=== PATIENT | male | born 1950 | race Caucasian/White ===

== ENCOUNTER 2021-06-20 09:34 | Inpatient (IN) ==
--- NOTE | 2021-06-20 09:54 | Emergency Department Note ---
Impression & Plan Hypotension, Syncope, Diarrhea, Hypokalemia, Acute dehydration ED Provider Note NAME: AYSHA PEREZ AGE: 71 SEX: M : 1950 ARRIVES VIA: Ambulance INFORMANT: Patient, ED PROVIDER(S): Prem Mina MD Chief Complaint: Syncope HPI: Patient presents with concern for syncope x2. The patient states that he syncopized around 2 AM this morning and subsequently around 7 AM. The patient's BSG was normal. The patient has complained of voluminous bouts of diarrhea that is clear in nature. The patient was told to stop his blood pressure medications which he was on a diuretic as well as a blood pressure medication that lowers rate. Patient was not advised to do this by his supervisor fur floor worker Dr. Reeder as he was having this diarrhea. Patient denies any recent travel or known sick contacts. Patient is vaccinated including with a booster. Patient did have fever to 101 2 days ago and did have a recurrence after taking some Tylenol. The patient denies any upper respiratory symptoms or abdominal pain. The patient does receive peritoneal dialysis and does make urine. Patient denies any abdominal pain nausea or vomiting. The patient denies any recent antibiotic use. Patient was noted to be hypertensive prior to arrival with a blood pressure 68/42 and pulse of 70. Patient does relate that he had been on a diuretic before due to a prior history of "fluid around the heart." Patient has followed with Dr. Clinton with [facility] cardiology in the past. The patient states that during his bouts of syncope he had counted warning signs to where he felt very lightheaded and dizzy try to sit down but then subsequently passed out. The patient does have some shortness of breath even at rest. Patient denies any obvious weight gain or lower extremity swelling. ROS: See HPI for pertinent positives and negatives. A total of 10 systems were reviewed and otherwise negative. Past medical history: See below Surgical history: See below Social history: See below Physical Exam: GENERAL: NAD, wearing glasses, wearing a mask, non-toxic. EYE EXAM: Normal conjunctiva. PERRL, no anisocoria and EOM's grossly intact w/o pain. OROPHARYNX: Moist mucus membranes. Grossly normal dentition. NECK: Supple, no nuchal rigidity, no adenopathy, non-tender. No signs of meningismus. LUNGS: Clear to auscultation. Normal chest wall mechanics. HEART: NSR, no MRG. ABDOMEN: Abdomen soft, non-tender, peritoneal catheter left mid abdomen with no surrounding erythema or drainage, normo-active bowel sounds, no masses, no rebound or guarding. BACK: No CVA TTP. SKIN: No rashes and no bruising. UPPER EXTREMITIES: Upper extremities are grossly normal. LOWER EXTREMITIES: Grossly normal, no edema. NEURO EXAM: A&O x3, cranial nerves II-XII grossly intact, normal speech, moves all 4 extremities on command w/o issue. Differential diagnoses: Infection, dehydration, metabolic abnormality, hypo/hyperglycemia, electrolyte disturbance, anemia, hypoxia, cardiac sources, intracerebral event, toxicologic, neurologic, as well as other pathologies. Course: Patient was seen and evaluated the bedside. Full history physical exam was performed. EKG interpreted by me Sinus, rate of 78, wide QRS prolonged QTC, left axis deviation, right bundle branch block pattern. Patient's EKG is changed from comparison EKG January 20, 2008. Patient's left axis deviation appears to be old right bundle branch block wide QRS and prolonged QT appear to be new. Imaging Studies: See Below Cardiac monitoring: An order was placed for continuous cardiac monitoring. The monitor shows a rate of 79 with sinus rhythm. MDM: Patient was seen due to concern for diarrhea illness hypotension and recent fever. Blood work obtained along with blood culture and the patient was empirically treated with antibiotics as a precaution given the patient's peritoneal dialysis and hypotension. Patient's blood work showed white count of 13 with mild anemia with a hemoglobin of 11.9. Platelet count is unremarkable. The patient's kidney function is elevated but the patient does have history of peritoneal dialysis. Potassium is not elevated. The patient's stool studies were completed which eventually showed the patient does have Salmonella. This result was conveyed to me after the patient had already been admitted to the inpatient service. Charge nurse was going to inform the inpatient team. Covid negative. I did inform the patient of all his findings prior to his admission. I did speak the on-call hospitalist Zina Connelly PA-C and the patient was admitted by Dr. Rojas. Past Med/Surg History Medical History (Updated 06/21/21 @ 07:11 by Prem Mina MD) CAD (coronary artery disease) CKD (chronic kidney disease) stage 5, GFR less than 15 ml/min Gout H/O: HTN (hypertension) HLD (hyperlipidemia) HTN (hypertension) Hyperparathyroidism Iron deficiency anemia Peritoneal dialysis status Presence of peritoneal dialysis catheter Surgical History (Updated 06/20/21 @ 13:18 by Zina Orozco PA-C) History of coronary angiogram History of parathyroidectomy History of vasectomy Family History (Updated 06/20/21 @ 13:19 by Zina Orozco PA-C) Father Diabetes Stroke Mother Coronary heart disease Social History Smoking Status: Never smoker Hx Alcohol Use: No Hx Substance Use: No Preferred Language: Estonian Communication Ability: Effective Financial Administrative Assistant Required: No Beliefs That Will Affect Care: None marital status: Current Living Situation: Alone Feels Safe at Home: Yes Safety Concerns: Feels Safe At This Time Assistive Devices: None Allergies Allergies Allergy/AdvReac Type Severity Reaction Status Date / Time lisinopril AdvReac Mild COUGH Verified 06/20/21 11:57 Home Meds Home Medications Medication Instructions Recorded Confirmed acetaminophen 500 mg tablet 1,000 mg PO Q6H PRN 06/20/21 06/20/21 (Tylenol Extra Strength) allopurinol 300 mg tablet 300 mg PO QAM 06/20/21 06/20/21 amlodipine 5 mg tablet 5 mg PO BID 06/20/21 06/20/21 aspirin 81 mg tablet,delayed 81 mg PO QAM 06/20/21 06/20/21 release atenolol 25 mg tablet 25 mg PO QAM 06/20/21 06/20/21 atorvastatin 40 mg tablet 40 mg PO QAM 06/20/21 06/20/21 calcium carbonate 200 mg calcium 200 mg PO HS 06/20/21 06/20/21 (500 mg) chewable tablet (Tums) cholecalciferol (vitamin D3) 25 25 mcg PO QAM 06/20/21 06/20/21 mcg (1,000 unit) tablet (Vitamin D3) docusate sodium 100 mg capsule 100 mg PO QAM 06/20/21 06/20/21 torsemide 100 mg tablet 100 mg PO QAM 06/20/21 06/20/21 Results & Data (ED) Vital Signs Vital Signs - 24 hr 06/20/21 09:24 06/20/21 09:39 06/20/21 10:15 Temperature 36.6 C Temperature Source Oral Pulse Rate 79 77 Pulse Rate [Apical] 78 Pulse Rhythm [Apical] Pulse Strength [Apical] Respiratory Rate 12 16 16 Respiratory Effort / Characteristics Respiratory Depth Respiratory Pattern Blood Pressure 92/48 L Blood Pressure [Left Arm] 96/52 L Blood Pressure Mean 62 Blood Pressure Mean [Left Arm] 66 Blood Pressure Position [Left Arm] Pulse Oximetry 99 100 100 Oxygen Delivery Method Room Air Room Air Room Air Sepsis Recent Fever Within 48 Hours No Sepsis New/Unexplained Change in Mental Status No Sepsis Action Taken by Nursing No Action Required 06/20/21 10:41 06/20/21 11:27 06/20/21 11:44 Temperature Temperature Source Pulse Rate Pulse Rate [Apical] 78 81 80 Pulse Rhythm [Apical] Regular Regular Pulse Strength [Apical] Normal Normal Respiratory Rate 16 18 18 Respiratory Effort / Characteristics Non-Labored Non-Labored Respiratory Depth Normal Normal Respiratory Pattern Regular Regular Blood Pressure Blood Pressure [Left Arm] 86/53 L 98/51 L 84/43 L Blood Pressure Mean Blood Pressure Mean [Left Arm] 64 66 56 Blood Pressure Position [Left Arm] Lying Lying Pulse Oximetry 100 98 98 Oxygen Delivery Method Room Air Room Air Sepsis Recent Fever Within 48 Hours Sepsis New/Unexplained Change in Mental Status Sepsis Action Taken by Nursing 06/20/21 12:10 Temperature Temperature Source Pulse Rate Pulse Rate [Apical] 84 Pulse Rhythm [Apical] Regular Pulse Strength [Apical] Normal Respiratory Rate 18 Respiratory Effort / Characteristics Non-Labored Respiratory Depth Normal Respiratory Pattern Regular Blood Pressure Blood Pressure [Left Arm] 95/48 L Blood Pressure Mean Blood Pressure Mean [Left Arm] 63 Blood Pressure Position [Left Arm] Lying Pulse Oximetry 99 Oxygen Delivery Method Room Air Sepsis Recent Fever Within 48 Hours Sepsis New/Unexplained Change in Mental Status Sepsis Action Taken by [facility] Medications Current Medication List: was personally reviewed by me Laboratory Data Attestation: I reviewed the patient's lab results. Result diagrams: 06/20/21 09:28 06/20/21 09:28 Lab Results 06/20/21 06/20/21 06/20/21 Range/Units 09:28 09:28 09:28 WBC 13.75 H (4.8-10.8) K/uL RBC 3.62 L (4.7-6.1) M/uL Hgb 11.9 L (14.0-18.0) g/dL Hct 35.7 L (42-52) % MCV 98.6 (80-100) fL MCH 32.9 (25-34) pg MCHC 33.3 (32-36) g/dL RDW Std Deviation 55.7 H (36.4-46.3) fL RDW Coeff of Jaiden 15.3 H (11.5-14.5) % Plt Count 315 (130-400) K/uL MPV 9.4 (7.4-10.4) fL Immature Gran % (Auto) 0.3 % Neut % (Auto) 82.7 % Lymph % (Auto) 8.7 % Ralls % (Auto) 8.2 % Eos % (Auto) 0.0 % Baso % (Auto) 0.1 % Neut # (Auto) 11.36 H (1.4-6.5) K/uL Lymph # (Auto) 1.20 (1.2-3.4) K/uL Ralls # (Auto) 1.13 H (0.11-0.59) K/uL Eos # (Auto) 0.00 (0-0.5) K/uL Baso # (Auto) 0.02 (0-0.2) K/uL Immature Gran # (Auto) 0.04 H (0.00-0.02) K/uL Sodium 133 L (136-145) mmol/L Potassium 3.3 L (3.5-5.1) mmol/L Chloride 93 L (98-107) mmol/L Carbon Dioxide 19 L (21-32) mmol/L Anion Gap 21 H (3-11) BUN 68 H (6-23) mg/dl Creatinine 12.38 H* (0.6-1.4) mg/dl Est Cr Clr Drug Dosing 5.2 ml/min Est GFR ( Amer) 4.1 ml/min Est GFR (Non-Af Amer) 3.6 ml/min BUN/Creatinine Ratio 5.5 L (10-20) Glucose 111 H (70-99(Fasting)) mg/dl Calcium 8.9 (8.5-10.1) mg/dl Magnesium 1.8 (1.7-2.4) mg/dl Total Bilirubin 0.5 (0.2-1.0) mg/dl AST 12 L (13-39) U/L ALT 11 (7-52) U/L Alkaline Phosphatase 68 (34-104) U/L Total Protein 7.4 (6.0-8.3) gm/dl Albumin 3.9 (3.4-5.0) gm/dl Globulin 3.5 (2.5-4.0) gm/dl Albumin/Globulin Ratio 1.1 (0.9-2) TSH 3.461 (0.300-4.500) uIu/ml Nasal Screen MRSA (PCR) (Negative) SARS-CoV-2, RNA, NAAT (NEGATIVE) 06/20/21 06/20/21 Range/Units 10:31 10:31 WBC (4.8-10.8) K/uL RBC (4.7-6.1) M/uL Hgb (14.0-18.0) g/dL Hct (42-52) % MCV (80-100) fL MCH (25-34) pg MCHC (32-36) g/dL RDW Std Deviation (36.4-46.3) fL RDW Coeff of Jaiden (11.5-14.5) % Plt Count (130-400) K/uL MPV (7.4-10.4) fL Immature Gran % (Auto) % Neut % (Auto) % Lymph % (Auto) % Ralls % (Auto) % Eos % (Auto) % Baso % (Auto) % Neut # (Auto) (1.4-6.5) K/uL Lymph # (Auto) (1.2-3.4) K/uL Ralls # (Auto) (0.11-0.59) K/uL Eos # (Auto) (0-0.5) K/uL Baso # (Auto) (0-0.2) K/uL Immature Gran # (Auto) (0.00-0.02) K/uL Sodium (136-145) mmol/L Potassium (3.5-5.1) mmol/L Chloride (98-107) mmol/L Carbon Dioxide (21-32) mmol/L Anion Gap (3-11) BUN (6-23) mg/dl Creatinine (0.6-1.4) mg/dl Est Cr Clr Drug Dosing ml/min Est GFR ( Amer) ml/min Est GFR (Non-Af Amer) ml/min BUN/Creatinine Ratio (10-20) Glucose (70-99(Fasting)) mg/dl Calcium (8.5-10.1) mg/dl Magnesium (1.7-2.4) mg/dl Total Bilirubin (0.2-1.0) mg/dl AST (13-39) U/L ALT (7-52) U/L Alkaline Phosphatase (34-104) U/L Total Protein (6.0-8.3) gm/dl Albumin (3.4-5.0) gm/dl Globulin (2.5-4.0) gm/dl Albumin/Globulin Ratio (0.9-2) TSH (0.300-4.500) uIu/ml Nasal Screen MRSA (PCR) Negative (Negative) SARS-CoV-2, RNA, NAAT NEGATIVE (NEGATIVE) Administered Medications Calcium Carbonate (Calcium Carbonate 500 Mg Chewable Tab) 200 mg PO HS JAVIER Stop: 07/20/21 20:59 Last Admin: 06/20/21 20:17 Dose: 200 mg Documented by: [id number] Pantoprazole Sodium 40 mg/ (Syringe) 10 mls @ 5 mls/min IV DAILY@1100 [facility] Stop: 07/20/21 13:59 Last Admin: 06/20/21 14:31 Dose: 5 mls/min Documented by: [id number] Ceftriaxone Sodium 1,000 mg/ (Dextrose) 60 mls @ 120 mls/hr IV Q24H JAVIER Stop: 06/30/21 15:44 Last Infusion: 06/20/21 18:44 Dose: 0 mls/hr Documented by: [id number] Admin: 06/20/21 18:14 Dose: 120 mls/hr Documented by: [id number] Loperamide HCl (Loperamide Hcl 2 Mg Cap) 2 mg PO Q6H PRN PRN Reason: Diarrhea Stop: 07/20/21 20:24 Last Admin: 06/20/21 21:12 Dose: 2 mg Documented by: [id number] Discontinued Medications Sodium Chloride (Nss 1000ml) 1,000 mls @ 999 mls/hr IV .[id number] JAVIER Stop: 06/20/21 11:15 Last Infusion: 06/20/21 10:42 Dose: 0 mls/hr Documented by: [id number] Admin: 06/20/21 10:30 Dose: 999 mls/hr Documented by: [id number] Piperacillin Sod/Tazobactam Sod (Zosyn) 4.5 gm in 120 mls @ 240 mls/hr IV NOW ONE Stop: 06/20/21 10:44 Last Infusion: 06/20/21 11:30 Dose: 0 mls/hr Documented by: [id number] Admin: 06/20/21 10:36 Dose: 240 mls/hr Documented by: [id number] Sodium Chloride (Nss 1000ml) 1,000 mls @ 999 mls/hr IV .Q1H1M ONE Stop: 06/20/21 12:51 Last Infusion: 06/20/21 13:31 Dose: 0 mls/hr Documented by: [id number] Admin: 06/20/21 11:56 Dose: 999 mls/hr Documented by: [id number] Lactated Ringer's (Lr) 1,000 mls @ 80 mls/hr IV .[id number] JAVIER Stop: 06/21/21 01:58 Last Infusion: 06/21/21 02:49 Dose: 0 mls/hr Documented by: [id number] Admin: 06/20/21 13:47 Dose: 80 mls/hr Documented by: [id number] Potassium Chloride (Potassium Chloride Crtab 20 Meq Tabcr) 20 meq PO NOW STA Stop: 06/20/21 14:20 Last Admin: 06/20/21 16:00 Dose: 20 meq Documented by: [id number] Discharge Plan Visit Data Chief Complaint: Syncope Stated Complaint: HYPOTENSION, DIARRHEA ED Provider: Prem Mina Discharge Problem: Hypotension, Syncope, Diarrhea, Hypokalemia, Acute dehydration Patient Disposition: Admitted As Inpatient Discharge Instructions Interventions: ED Discharge Assessment Last Done: 06/20/21 12:32
[2021-06-20] MEDS ORDERED: PIPERACILL/TAZOBAC CONSULT ACTIVE PRN ×2 (10:15→13:29)
[2021-06-20] MEDS ORDERED: SODIUM CHLORIDE 0.9% 1000ML 1,000 ML IV SCH (10:15)
[2021-06-20] MEDS ORDERED: PIPERACILLIN/TAZOBACTAM 4.5 GM/120 ML BAG IV ONE (10:15)
[2021-06-20 10:25] LABS: Basophils # (auto) 0.02 K/uL (0-0.2); Basophils % (auto) 0.1 %; Hematocrit (blood only) 35.7 % (42-52); Hemoglobin 11.9 g/dL (14.0-18.0); Immature Granulocytes # (auto) 0.04 K/uL (0.00-0.02); Immature Granulocytes % (auto) 0.3 %; Lymphocytes % (auto) 8.7 %; Mean Corpuscular Hemoglobin 32.9 pg (25-34); Mean Corpuscular Hgb Conc 33.3 g/dL (32-36); Mean Corpuscular Volume 98.6 fL (80-100); Mean Platelet Volume 9.4 fL (7.4-10.4); Monocytes # (auto) 1.13 K/uL (0.11-0.59); Monocytes % (auto) 8.2 %; Neutrophils # (auto) 11.36 K/uL (1.4-6.5); Neutrophils % (auto) 82.7 %; Platelet Count 315 K/uL (130-400); RDW Coefficient of Variation 15.3 % (11.5-14.5); RDW Standard Deviation 55.7 fL (36.4-46.3); Red Blood Count 3.62 M/uL (4.7-6.1); White Blood Count 13.75 K/uL (4.8-10.8)
[2021-06-20 10:43] LABS: Albumin Globulin Ratio 1.1 (0.9-2); Albumin Level 3.9 gm/dl (3.4-5.0); BUN Creatinine Ratio 5.5 (10-20); Bilirubin,Total 0.5 mg/dl (0.2-1.0); Calcium 8.9 mg/dl (8.5-10.1); Creatinine Clr Calc Pharmacy 5.2 ml/min; Est GFR (African American) 4.1 ml/min; Est GFR (Non-African American) 3.6 ml/min; Globulin 3.5 gm/dl (2.5-4.0); Magnesium 1.8 mg/dl (1.7-2.4); Potassium 3.3 mmol/L (3.5-5.1); Total Protein 7.4 gm/dl (6.0-8.3)
--- NOTE | 2021-06-20 10:49 | XRay Report ---
XR chest 1V portable HISTORY: 71 years-old Male weakness acute weakness COMPARISON: 01/19/2008 TECHNIQUE: Portable AP view of the chest FINDINGS: Cardiac mediastinal and hilar silhouettes are within normal limits. Calcified plaque of the thoracic aorta. No pneumothorax, pleural effusion, airspace consolidation or overt pulmonary edema. The bones of the chest appear grossly intact. Spondylitic spurring of the spine. IMPRESSION: No acute process. ACT 112: Negative or not required by law. The above report was generated using voice recognition software. It may contain grammatical, syntax o r spelling errors. Electronically signed by: Cortez Guerrero M.D. 06/20/2021 10:48 AM
--- NOTE | 2021-06-20 11:12 | CT Scan Report ---
CT head/brain wo con CLINICAL HISTORY: Status post fall with trauma to the forehead. Pain 01/19/2008 COMPARISON STUDY: No previous studies for comparison. CT DOSE: 537.48 mGy.cm TECHNIQUE: Standard CT of the Brain was performed without IV contrast. A dose lowering technique was utilized adhering to the principles of ALARA. FINDINGS: Extraaxial space: There is no evidence for subdural hematoma. There are no extra-axial fluid collecti ons. Ventricles and cisterns: The ventricles are mildly dilated bilaterally. There is no evidence for midl ine shift or mass effect. Parenchyma: There is no subarachnoid or intraparenchymal hemorrhage. There is no evidence for an acut e infarct or cerebral edema. There is mild cerebral cortical atrophy and decreased attenuation in the periventricular white matter representing remote small vessel disease. There are no gross mass lesio ns. Osseous structures: There is no evidence for an acute fracture. The visualized paranasal sinuses are clear. The mastoid air cells are clear bilaterally. Soft tissues: There is no evidence for focal soft tissue swelling. IMPRESSION: 1. No acute intracerebral pathology. 2. Mild cerebral cortical atrophy and remote small vessel disease. ACT 112: Negative or not required by law. Electronically signed by: Jose Fields M.D. 06/20/2021 11:11 AM
[2021-06-20] MEDS ORDERED: SODIUM CHLORIDE 0.9% 1000ML 1,000 ML IV ONE (11:51)
--- NOTE | 2021-06-20 13:06 | History & Physical Report ---
Date of Service June 20, 2021 Assessment & Plan (1) Syncope: (2) Diarrhea: (3) Hypotension: (4) Hypokalemia: (5) Metabolic acidosis, increased anion gap: (6) CKD (chronic kidney disease) stage 5, GFR less than 15 ml/min: (7) HTN (hypertension): (8) HLD (hyperlipidemia): Plan: This is a 71-year-old male who has significant past medical history of CKD stage V on peritoneal dialysis, CAD, HTN, HLD, hyperparathyroidism, gout, history of iron deficiency anemia who presents to ED after sustaining a syncopal episode x1. Syncope Acute diarrheal illness Salmonella Gastroenteritis Hypotension likely secondary to orthostasis in setting of volume depletion Admit to PCU Orthostatic Monitor on telemetry Consult nephrology due to peritoneal dialysis -discussed with Dr. Mcdaniel who recommends 1 L of Lactate Ringers Given Salmonella and prolonged QTC will avoid quinolones Discussed with pharmacy will start IV rocephin 1g daily blood culture, stool culture and urine ordered PT/OT per nephrology pt will likely do PD this evening If Cdif negative add imodium Hypokalemia replace Metabolic acidosis, increased anion gap continue fluids Dark stool pt reports Dark/Black stool per nursing it was blue/green will obtain FOBT hgb. 11.9 - improved from OP recs, hgb 06/03 9.5 IV PPI daily for now HTN hold atenolol, amlodipine and torsemide HLD continue statin DVT ppx: SCD/TEDS for now, if FOBT negative and h/h stable initiate chemical prophylaxis Dispo: PCU PCP: Rubia FULL CODE PT was seen and examined in collaboration with Dr. Rojas, please see addendum History of Present Illness Chief Complaint: Syncope x 1. Primary Care Provider: Kiel Barkley MD This is a 71-year-old male who has significant past medical history of CKD stage V on peritoneal dialysis, CAD, HTN, HLD, hyperparathyroidism, gout, history of iron deficiency anemia who presents to ED after sustaining a syncopal episode x1. Patient developed profuse diarrhea starting yesterday. He has had approximately 20 episodes of loose watery diarrhea. He did have a one-time episode of fever yesterday at 1-1.9. It resolved with Tylenol. He denies any abdominal pain, but describes abdominal gurgling with diarrhea episodes. He has been going approximately every 30 minutes. He describes the diarrhea as dark, but not tarry or bloody. This morning at approximately 2 AM he got the urge to have a bowel movement. When he got to the edge of his bed and went to stand up he felt lightheaded, dizzy and felt like he was going to pass out. He also got very sweaty. He ended up passing out falling on the floor and hitting his head on a carpeted floor. Is unsure how long he was out. He was able to get himself off the floor and back into bed. At approximately 7 AM he had to have another bowel movement. When walking back from the bathroom he tried to sit on his bed and fell on his floor. He did not lose consciousness this time. He feels he just misjudged the bed. He did land on his left side. He denies any injury, headache, change in vision or change in hearing. Patient was able to get himself back in bed and called his daughter. His daughter urged him to come to ED. Patient does have CKD stage V and is on peritoneal dialysis. He did not have do his peritoneal dialysis last night secondary to losing so much fluid. He also did not take his torsemide yesterday or today. His appetite has been very poor and his intake has been minimal.He denies any chills, chest pain, shortness of breath, cough, URI symptoms, nausea, vomiting, dysuria, increased urination, melena or hematochezia. Patient summoned EMS and was found to be hypotensive. He did not take any of his meds today. In ED SBP was in 80s-90s. He received 1L of IVF and already feels improved. 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 He is fully vaxed and boosted. Patient admits to hitting his head but no injury. CT of head in ED revealed mild cerebral cortical atrophy but otherwise no acute abnormalities. He has no acute injury to the head. Patient's records were reviewed in [facility]. His previous creatinine on 05/22/2020 was 5.9. His hemoglobin at that time was 9.5. Allergies Allergy/AdvReac Type Severity Reaction Status Date / Time lisinopril AdvReac Mild COUGH Verified 06/20/21 11:57 Home Medications Medication Instructions Recorded Confirmed Type acetaminophen 500 mg tablet 1,000 mg PO Q6H PRN 06/20/21 06/20/21 History (Tylenol Extra Strength) allopurinol 300 mg tablet 300 mg PO QAM 06/20/21 06/20/21 History amlodipine 5 mg tablet 5 mg PO BID 06/20/21 06/20/21 History aspirin 81 mg tablet,delayed 81 mg PO QAM 06/20/21 06/20/21 History release atenolol 25 mg tablet 25 mg PO QAM 06/20/21 06/20/21 History atorvastatin 40 mg tablet 40 mg PO QAM 06/20/21 06/20/21 History calcium carbonate 200 mg calcium 200 mg PO HS 06/20/21 06/20/21 History (500 mg) chewable tablet (Tums) cholecalciferol (vitamin D3) 25 25 mcg PO QAM 06/20/21 06/20/21 History mcg (1,000 unit) tablet (Vitamin D3) docusate sodium 100 mg capsule 100 mg PO QAM 06/20/21 06/20/21 History torsemide 100 mg tablet 100 mg PO QAM 06/20/21 06/20/21 History Past Med/Surg History Medical History (Updated 06/20/21 @ 13:25 by Zina Orozco PA-C) CAD (coronary artery disease) CKD (chronic kidney disease) stage 5, GFR less than 15 ml/min Gout H/O: HTN (hypertension) HLD (hyperlipidemia) HTN (hypertension) Hyperparathyroidism Iron deficiency anemia Peritoneal dialysis status Presence of peritoneal dialysis catheter Surgical History (Updated 06/20/21 @ 13:18 by Zina Orozco PA-C) History of coronary angiogram History of parathyroidectomy History of vasectomy Family History (Updated 06/20/21 @ 13:19 by Zina Orozco PA-C) Father Diabetes Stroke Mother Coronary heart disease Social History Smoking Status: Never smoker Hx Alcohol Use: No Hx Substance Use: No Preferred Language: Cymraes Communication Ability: Effective 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 Beliefs That Will Affect Care: None marital status: Current Living Situation: Alone Feels Safe at Home: Yes Safety Concerns: Feels Safe At This Time Assistive Devices: None Review of Systems Review of Systems: All systems reviewed & are unremarkable except as noted in HPI & below Physical Exam Physical Exam: Constitutional: WD/WN, thin, male vitals as above, NAD, sitting up in bed, pleasant, conversing easily Head: Normocephalic, Atraumatic Eyes: PERRL, conjunctivae normal, anicteric sclerae ENMT: external ear and nose normal, oropharynx normal Neck: trachea midline, no thyromegaly normal visual inspection Respiratory: normal respiratory effort, lungs clear to auscultation, no wheeze, rales, rhonchi. Normal insp/exp effort, no accessory muscle use Cardiovascular: RRR, no murmur, no edema Vessels: no JVD or carotid bruit Chest: normal inspection of chest Abdomen: normal bowel sounds, soft, nontender, no hepatosplenomegaly + PD cath site, no erythema Musculoskeletal: no cyanosis or clubbing, extremities motor strength 5/5 Skin: no rashes, warm and dry normal turgor Neurologic: PERRL, EOMI, accommodation nl, no face palsy, no dysarthria CN's II-XI intact bilaterally and moves all extremities Psychiatric: A+Ox3, euthymic affect Lymphatic: no cervical or axillary lymphadenopathy : deferred Results & Data Results & Data ([facility]) Vital Signs (Past 12 Hours) Vital Signs Temp Pulse Pulse Resp BP BP Pulse Ox 06/20/21 12:32 81 18 93/49 L 99 06/20/21 12:10 84 18 95/48 L 99 06/20/21 11:44 80 18 84/43 L 98 06/20/21 11:27 81 18 98/51 L 98 06/20/21 10:41 78 16 86/53 L 100 06/20/21 10:15 77 16 100 06/20/21 09:39 78 16 96/52 L 100 06/20/21 09:24 36.6 C 79 12 92/48 L 99 Diagnostic Findings Chest X-Ray 06/20/21 10:15 XR chest 1V portable HISTORY: 71 years-old Male weakness acute weakness COMPARISON: 01/19/2008 TECHNIQUE: Portable AP view of the chest FINDINGS: Cardiac mediastinal and hilar silhouettes are within normal limits. Calcified plaque of the thoracic aorta. No pneumothorax, pleural effusion, airspace conso lidation or overt pulmonary edema. The bones of the chest appear grossly intact. Spondylitic spurring of the spine. IMPRESSION: No acute process. ACT 112: Negative or not required by law. The above report was generated using voice recognition software. It may contain grammatical, syntax or spelling errors. Electronically signed by: Cortez Guerrero M.D. 06/20/2021 10:[address] 06/20/21 10:41 CT head/brain wo con CLINICAL HISTORY: Status post fall with trauma to the forehead. Pain 01/19/2008 COMPARISON STUDY: No previous studies for comparison. CT DOSE: 537.48 mGy.cm TECHNIQUE: Standard CT of the Brain was performed without IV contrast. A dose lowering technique was utilized adhering to the principles of ALARA. FINDINGS: Extraaxial space: There is no evidence for subdural hematoma. There are no extra-axial fluid collections. Ventricles and cisterns: The ventricles are mildly dilated bilaterally. There is no evidence for midline shift or mass effect. Parenchyma: There is no subarachnoid or intraparenchymal hemorrhage. There is no evidence for an acute infarct or cerebral edema. There is mild cerebral cortical atrophy and decreased attenuation in the periventricular white matter representing remote small vessel disease. There are no gross mass lesions. Osseous structures: There is no evidence for an acute fracture. The visualized paranasal sinuses are clear. The mastoid air cells are clear bilaterally. Soft tissues: There is no evidence for focal soft tissue swelling. IMPRESSION: 1. No acute intracerebral pathology. 2. Mild cerebral cortical atrophy and remote small vessel disease. ACT 112: Negative or not required by law. Electronically signed by: Jose Fields M.D. 06/20/2021 11:11 AM Medications Administered Medication List Discontinued Medications Sodium Chloride (Nss 1000ml) 1,000 mls @ 999 mls/hr IV .Q1H1M JAVIER Stop: 06/20/21 11:15 Last Infusion: 06/20/21 10:42 Dose: 0 mls/hr Documented by: [id number] Admin: 06/20/21 10:30 Dose: 999 mls/hr Documented by: [id number] Piperacillin Sod/Tazobactam Sod (Zosyn) 4.5 gm in 120 mls @ 240 mls/hr IV NOW ONE Stop: 06/20/21 10:44 Last Infusion: 06/20/21 11:30 Dose: 0 mls/hr Documented by: [id number] Admin: 06/20/21 10:36 Dose: 240 mls/hr Documented by: [id number] Sodium Chloride (Nss 1000ml) 1,000 mls @ 999 mls/hr IV .Q1H1M ONE Stop: 06/20/21 12:51 Last Admin: 06/20/21 11:56 Dose: 999 mls/hr Documented by: [id number] ECG Rate (beats per minute): 78 Rhythm: normal sinus Findings: + LAFB and + RBBB COVID-19 Results Results COVID-19 Adm Lab Results: RBC 3.62 M/uL (4.7-6.1) L 06/20/21 WBC 13.75 K/uL (4.8-10.8) H 06/20/21 Hgb 11.9 g/dL (14.0-18.0) L 06/20/21 Hct 35.7 % (42-52) L 06/20/21 Plt Count 315 K/uL (130-400) 06/20/21 Neutrophils (%) (Auto) 82.7 % 06/20/21 Lymphocytes (%) (Auto) 8.7 % 06/20/21 Monocytes # (Auto) 1.13 K/uL (0.11-0.59) H 06/20/21 Eosinophils # (Auto) 0.00 K/uL (0-0.5) 06/20/21 Immature Granulocyte % (Auto) 0.3 % 06/20/21 Neutrophils # (Auto) 11.36 K/uL (1.4-6.5) H 06/20/21 Lymphocytes # (Auto) 1.20 K/uL (1.2-3.4) 06/20/21 Monocytes # (Auto) 1.13 K/uL (0.11-0.59) H 06/20/21 Eosinophils # (Auto) 0.00 K/uL (0-0.5) 06/20/21 Basophils # (Auto) 0.02 K/uL (0-0.2) 06/20/21 Immature Granulocyte # (Auto) 0.04 K/uL (0.00-0.02) H 06/20/21 Na 133 mmol/L (136-145) L 06/20/21 K 3.3 mmol/L (3.5-5.1) L 06/20/21 Cl 93 mmol/L (98-107) L 06/20/21 CO2 19 mmol/L (21-32) L 06/20/21 Anion Gap 21 (3-11) H 06/20/21 BUN 68 mg/dl (6-23) H 06/20/21 Creatinine 12.38 mg/dl (0.6-1.4) H* 06/20/21 BUN/Creatinine Ratio 5.5 (10-20) L 06/20/21 Glucose Level 111 mg/dl (70-99(Fasting)) H 06/20/21 Ca 8.9 mg/dl (8.5-10.1) 06/20/21 Total Bilirubin 0.5 mg/dl (0.2-1.0) 06/20/21 AST/SGOT 12 U/L (13-39) L 06/20/21 ALT/SGPT 11 U/L (7-52) 06/20/21 Alkaline Phosphatase 68 U/L (34-104) 06/20/21 Total Protein 7.4 gm/dl (6.0-8.3) 06/20/21 Albumin 3.9 gm/dl (3.4-5.0) 06/20/21 Globulin 3.5 gm/dl (2.5-4.0) 06/20/21 Albumin/Globulin Ratio 1.1 (0.9-2) 06/20/21 SARS-CoV-2, RNA, NAAT NEGATIVE (NEGATIVE) 06/20/21 Chest X-Ray 06/20/21 Code Status & VTE Plan Code Status FULL CODE VTE Prophylaxis Plan VTE Prophylaxis will be ordered: Yes Supervising Physician Co-Signing Physician Notes Attending addendum: The patient was seen and examined in telemetry unit He has had 2 episodes of syncope with one episode of possible loss of consciousness Has been having profuse diarrhea for the last day or 2 Denies any abdominal pain, fever and or chills On examination Lying in bed comfortably Blood pressure noted to be low at 86/47 but otherwise stable Chestclear to auscultate bilaterally HeartS1-S2, regular Abdomenbenign and has the peritoneal dialysis catheter in situ Extremitiesnegative for any edema His admission labs, imaging studies reviewed Syncopal episode likely secondary to vasovagal events and postural hypotension Significant diarrhea with dehydration and noted to have Salmonella infection End-stage renal disease on peritoneal dialysis Agree with assessment and plan as outlined above by Zina Roajs
[2021-06-20] MEDS ORDERED: POLYETHYLENE (MIRALAX) 17 GM PACK PO PRN (13:29)
[2021-06-20] MEDS ORDERED: ACETAMINOPHEN 325 MG TAB PO PRN (13:29)
[2021-06-20] MEDS ORDERED: LACTATED RINGER'S 1,000 ML IV SCH (13:29)
--- NOTE | 2021-06-20 13:42 | Electrocardiogram Report ---
Test Reason : Blood Pressure : / mmHG Vent. Rate : 078 BPM Atrial Rate : 078 BPM P-R Int : 162 ms QRS Dur : 132 ms QT Int : 490 ms P-R-T Axes : 068 -73 090 degrees QTc Int : 558 ms Sinus rhythm Right bundle branch block Left anterior fascicular block Left ventricular hypertrophy with QRS widening and repolarization abnormality Abnormal ECG When compared with ECG of 20-JAN-2008 06:43, (RBBB and left anterior fascicular block) is now Present Confirmed by Faheem Taylor ([id number]) on 06/20/2021 1:42:01 PM Referred By: Confirmed By:Faheem Taylor
[2021-06-20 13:54] LABS: Adenovirus F 40/41 PCR Not Detected (NotDetected); Astrovirus PCR Not Detected (NotDetected); Campylobacter PCR Not Detected (NotDetected); Clostridium diff Toxin A/B PCR Not Detected (NotDetected); Cryptosporidium PCR Not Detected (NotDetected); Cyclospora cayetanensis PCR Not Detected (NotDetected); Entamoeba histolytica PCR Not Detected (NotDetected); Enteroaggregative E.coli(EAEC) Not Detected (NotDetected); Enteropathogenic E.coli (EPEC) Not Detected (NotDetected); Enterotoxigenic E.coli (ETEC) Not Detected (NotDetected); Giardia lamblia PCR Not Detected (NotDetected); Norovirus GI/GII PCR Not Detected (NotDetected); Plesiomonas shigelloides PCR Not Detected (NotDetected); Rotavirus A PCR Not Detected (NotDetected); Sapovirus PCR Not Detected (NotDetected); Shiga-like Toxin E.coli (STEC) Not Detected (NotDetected); Shigella/Enteroinvasive E.coli Not Detected (NotDetected); Vibrio cholerae PCR Not Detected (NotDetected); Vibrio species PCR Not Detected (NotDetected); Yersinia enterocolitica PCR Not Detected (NotDetected)
[2021-06-20 14:16] LABS: Salmonella PCR DETECTED (NotDetected)
[2021-06-20] MEDS ORDERED: POTASSIUM CHLORIDE CRTAB 20 MEQ TABCR PO STA (14:19)
[2021-06-20] MEDS: PANTOprazole 40 MG in SYRINGE 0 ML IV SCH (14:31)
[2021-06-20] MEDS: cefTRIAXone SODIUM 1,000 MG in DEXTROSE 5% 50 ML IV SCH (18:14)
[2021-06-20] MEDS ORDERED: PIPERACILLIN/TAZOBACTAM 3.375 GM in DEXTROSE 5% 100 ML IV SCH (18:30)
[2021-06-20] MEDS: CALCIUM CARBONATE 500 MG CHEWABLE TAB PO SCH (20:17)
[2021-06-20] MEDS ORDERED: LOPERAMIDE HCL 2 MG CAP PO PRN (20:25)
[2021-06-21] MEDS: allopurinoL 300 MG TAB PO SCH (08:20)
[2021-06-21] MEDS: ASPIRIN 81 MG ECTAB PO SCH (08:20)
[2021-06-21] MEDS: CHOLECALCIFEROL 1,000 UNITS 25 MCG TAB PO SCH (08:20)
[2021-06-21 08:51] LABS: Basophils # (auto) 0.01 K/uL (0-0.2); Basophils % (auto) 0.1 %; Eosinophils # (auto) 0.04 K/uL (0-0.5); Eosinophils % (auto) 0.4 %; Hematocrit (blood only) 30.7 % (42-52); Hemoglobin 10.6 g/dL (14.0-18.0); Immature Granulocytes # (auto) 0.03 K/uL (0.00-0.02); Immature Granulocytes % (auto) 0.3 %; Lymphocytes # (auto) 1.04 K/uL (1.2-3.4); Lymphocytes % (auto) 9.5 %; Mean Corpuscular Hemoglobin 33.4 pg (25-34); Mean Corpuscular Hgb Conc 34.5 g/dL (32-36); Mean Corpuscular Volume 96.8 fL (80-100); Mean Platelet Volume 8.9 fL (7.4-10.4); Monocytes # (auto) 0.98 K/uL (0.11-0.59); Monocytes % (auto) 8.9 %; Neutrophils % (auto) 80.8 %; Platelet Count 286 K/uL (130-400); RDW Coefficient of Variation 14.9 % (11.5-14.5); RDW Standard Deviation 52.4 fL (36.4-46.3); Red Blood Count 3.17 M/uL (4.7-6.1)
[2021-06-21 09:21] LABS: Albumin Globulin Ratio 1.2 (0.9-2); Albumin Level 3.4 gm/dl (3.4-5.0); BUN Creatinine Ratio 5.2 (10-20); Bilirubin,Total 0.3 mg/dl (0.2-1.0); Creatinine Clr Calc Pharmacy 2.9 ml/min; Est GFR (African American) 4.2 ml/min; Est GFR (Non-African American) 3.6 ml/min; Globulin 2.8 gm/dl (2.5-4.0); Magnesium 1.6 mg/dl (1.7-2.4); Phosphorus 6.8 mg/dl (2.5-4.9); Total Protein 6.2 gm/dl (6.0-8.3)
[2021-06-21] MEDS ORDERED: POTASSIUM CHLORIDE CRTAB 20 MEQ TABCR PO STA (09:59)
[2021-06-21] MEDS: MAGNESIUM SULFATE / D5W 1 GM/100 ML BAG IV SCH ×2 (10:17→12:24)
--- NOTE | 2021-06-21 10:40 | Consultation Report ---
NEPHROLOGY CONSULTATION NOTE DATE OF SERVICE: 06/21/2021 REASON FOR CONSULTATION: Dialysis patient admitted with syncope, severe diarrhea. HISTORY OF PRESENT ILLNESS: The patient is a 71-year-old male with ESRD, on chronic peritoneal dialysis at home as well as multiple other medical problems. He presented to the hospital after being directed by nephrology because of profuse diarrhea for the last 2 days as well as some fever. His blood pressure continued to drop and he even had some syncopal episode at home. After the syncopal episode, daughter got very concerned and convinced him to come to the Emergency Department. The patient does not like coming to the hospital and is already very eager to go home. He was instructed not to do peritoneal dialysis the night before admission because of extremely low blood pressure. Since being admitted, he has had a full workup done and was found to have Salmonella infection. He has been getting antibiotics. His blood pressure medication has been on hold and includes atenolol, amlodipine, and torsemide. His diarrhea has already pretty much stopped and he is starting to get hungry. Denies any nausea, vomiting, or abdominal issue at this time. He received about 2 liters of fluid in the hospital so far, but not getting now. He did have peritoneal dialysis last night as per his regular prescription, which he tolerated pretty well. ALLERGIES: LISINOPRIL. MEDICATIONS: Home medication list was reviewed in full detail and includes amlodipine, atenolol, torsemide, vitamin D, Lipitor, aspirin, allopurinol. Inpatient medication was also reviewed in detail. PAST MEDICAL AND SURGICAL HISTORY: ESRD, on chronic peritoneal dialysis, gout, hypertension, hyperlipidemia, secondary hyperparathyroidism secondary to ESRD, iron-deficiency anemia, coronary angiogram, parathyroidectomy, vasectomy. FAMILY HISTORY: Negative for renal disease or dialysis. SOCIAL HISTORY: Never smoked. No alcohol. He lives alone. He is quite active. He does not use oxygen or any type of assistive device at home. REVIEW OF SYSTEMS: Besides what is listed in HPI, 12 systems reviewed and negative. PHYSICAL EXAMINATION: GENERAL: Elderly white male who appears to be doing pretty good at this time. He does not appear to be in any respiratory distress. Awake, alert, oriented x3 and was able to give a full account of his medical problem. VITAL SIGNS: Include blood pressure 103/53 at this time, he was hypotensive yesterday in the Emergency Department with blood pressure as low as 84 systolic. Pulse rate 86, temperature 37.1, 95% on room air. HEENT: Mucous membrane moist. Normocephalic, atraumatic. NECK: No jugular venous distention. CHEST: Bilaterally clear to auscultation. CARDIOVASCULAR: S1 and S2, regular. No murmur. No edema. ABDOMEN: Soft, nontender. No costovertebral angle tenderness. PD catheter site normal, clean and dry. NEUROLOGIC: Awake, alert and oriented. Normal speech. LABORATORY TEST: Stool positive for Salmonella and has been labeled as the cause of the severe diarrhea he had. Hemoglobin 10.6, WBC count 11,000, platelet count 286. Sodium 135, potassium 3.0, BUN 64, creatinine 12.26, calcium 7, phosphorus 6.8, magnesium 1.6, anion gap 17, bicarbonate 19. Blood culture is now growing Gram-negative bacteria Chest x-ray unremarkable. Head CT unremarkable. ASSESSMENT AND PLAN: A 71-year-old male with end-stage renal disease, on chronic peritoneal dialysis, admitted with Salmonella infection causing severe diarrhea and multiple electrolyte issues as well as severe volume depletion causing very low blood pressure and syncope. 1. End-stage renal disease: He had peritoneal dialysis last night, 4 exchanges for 8 hours on 1.5% dextrose solution. If he continues to be in the hospital tonight, he will get the same. 2. Electrolyte issues: He has low potassium, low magnesium, which will be corrected, but I expect this to get better quite fast given the diarrhea has already stopped. 3. Hypertension and syncope: This was secondary to severe diarrhea and volume depletion. I will continue to hold his blood pressure medication for one more day. The first medication to be restarted should be atenolol. Amlodipine and torsemide can be held for the next few days. No further workup is needed. Job ID: [id number] [facility]
[2021-06-21] MEDS: PANTOprazole 40 MG in SYRINGE 0 ML IV SCH (11:17)
--- NOTE | 2021-06-21 15:04 | Hospitalist Progress Note ---
Date of Service June 21, 2021 Assessment & Plan (1) Syncope: (2) Diarrhea: (3) Hypotension: (4) Hypokalemia: (5) Metabolic acidosis, increased anion gap: (6) CKD (chronic kidney disease) stage 5, GFR less than 15 ml/min: (7) HTN (hypertension): (8) HLD (hyperlipidemia): Plan: This is a 71-year-old male who has significant past medical history of CKD stage V on peritoneal dialysis, CAD, HTN, HLD, hyperparathyroidism, gout, history of iron deficiency anemia who presents to ED after sustaining a syncopal episode x1. Syncope Mostly due to orthostatic hypotension due to recurrent diarrhea CT head showed no acute intracerebral pathology. No focal neuro deficit stable Acute diarrheal illness Salmonella Gastroenteritis Hypotension likely secondary to orthostasis in setting of volume depletion Stool for salmonella positive Stool for Cdif negative Avoiding quinolones due to QTC prolongation Received IV Zosyn in the ER He was starting on Ceftriaxone Continue IV ceftriaxone for now Infection control notified health department that already contacted the patient this morning to investigate it Continue monitor closely Electrolytes abnormality Potassium 3 and magnesium 1.6 today K amd mag replaced Continue monitor BMP Bacteremia Blood cx grew gram negative baccilli Continue Rocephin IV Will repeat blood cx End-stage renal disease Continue peritoneal dialysis at night Nephrology on board Dark stool pt reports Dark/Black stool per nursing it was blue/green will obtain FOBT hgb. 11.9 - improved from OP recs, hgb 06/03 9.5 IV PPI daily for now HTN Continue to hold atenolol, amlodipine and torsemide If BP improves, will resume meds on at a time ( Atenolol follow by Amlodipine and Torsemide HLD continue statin DVT ppx: On SCD/TEDS for now Will start on heparin subq CODE status FULL CODE Admission and Anticipated Discharge Date Admission Date: June 20, 2021 Subjective Pt was seen and examined for follow up of diarrhea Sitting in chair with no acute distress Pt said that he remembers that he bought some eggs from a farm He said that he did not like the sanitation at the farm He said that after eating the eggs he developed recurrent watery diarrhea he said that his diarrhea seems to slow down today Denies any chest pain, palpitation, dizziness and SOB Review of Systems Review of Systems: All systems reviewed & are unremarkable except as noted in Subjective Physical Exam Physical Exam: General- No acute distress Head- atraumatic Eyes- PERRL, EOMI, ENT- oropharynx clear Neck- supple, no JVD Lungs- clear to auscultation Heart- regular rhythm; no murmur Abdomen- normal bowel sounds, soft, nontender Extremities- no calf tenderness Neuro- alert, oriented x 3; PERRL, EOMI; no facial palsy; no dysarthria Skin- warm & dry Results & Data Results & [facility] ([facility]) Vital Signs (Past 12 Hours) Vital Signs Temp Pulse Pulse Resp BP Pulse Ox 06/21/21 11:36 97/56 L 06/21/21 11:20 36.7 C 79 20 75/45 L 96 06/21/21 08:15 37.1 C 83 24 06/21/21 08:01 37.1 C 86 27 H 103/53 L 95 06/21/21 08:00 82 06/21/21 03:32 110/53 L 06/21/21 03:24 37.6 C H 80 18 90/54 L 97 (1) Syncope Syncope type: unspecified Qualified Code(s): R55 - Syncope and collapse (2) Hypotension Hypotension type: unspecified hypotension type Qualified Code(s): I95.9 - Hypotension, unspecified
[2021-06-21 15:30] LABS: BUN Creatinine Ratio 5.2 (10-20); Calcium 7.3 mg/dl (8.5-10.1); Creatinine Clr Calc Pharmacy 4.9 ml/min; Est GFR (African American) 3.9 ml/min; Est GFR (Non-African American) 3.4 ml/min; Potassium 3.2 mmol/L (3.5-5.1)
[2021-06-21] MEDS: cefTRIAXone SODIUM 1,000 MG in DEXTROSE 5% 50 ML IV SCH (17:43)
[2021-06-21] MEDS: METOCLOPRAMIDE HCL 5 MG TABLET PO PRN (17:43)
[2021-06-21] MEDS: CALCIUM CARBONATE 500 MG CHEWABLE TAB PO SCH (19:49)
[2021-06-21] MEDS ORDERED: ALBUT/IPRATROP 3MG/0.5MG NEB 3 ML VIAL NEB STA (22:44)
[2021-06-21] MEDS ORDERED: ALBUT/IPRATROP 3MG/0.5MG NEB 3 ML VIAL ONE (22:55)
[2021-06-21] MEDS ORDERED: TORSEMIDE 100 MG TAB PO STA ×2 (23:09→23:47)
[2021-06-21 23:11] LABS: Partial Thromboplastin Time 27.7 Seconds (21.0-31.0)
--- NOTE | 2021-06-21 23:16 | XRay Report ---
XR chest 1V portable HISTORY: 71 years-old Male sob acute shortness of breath COMPARISON: Chest radiograph 06/20/2021 TECHNIQUE: Portable AP view of the chest FINDINGS: Cardiomediastinal and hilar silhouettes are within normal limits. No pneumothorax, pleural effusion, airspace consolidation or overt pulmonary edema. Atherosclerosis of the aorta. Degenerative changes o f the shoulders and spine. Bones appear grossly intact. IMPRESSION: No acute process. ACT 112: Negative or not required by law. The above report was generated using voice recognition software. It may contain grammatical, syntax o r spelling errors. Electronically signed by: Cortez Guerrero M.D. 06/21/2021 11:15 PM
[2021-06-21 23:29] LABS: Troponin I 0.15 ng/ml (0-0.04)
[2021-06-21 23:39] LABS: Magnesium 2.2 mg/dl (1.7-2.4)
[2021-06-22] MEDS: METOCLOPRAMIDE HCL 5 MG TABLET PO PRN (02:56)
[2021-06-22] MEDS: CHOLECALCIFEROL 1,000 UNITS 25 MCG TAB PO SCH (07:38)
[2021-06-22] MEDS: ASPIRIN 81 MG ECTAB PO SCH (07:38)
[2021-06-22] MEDS: allopurinoL 300 MG TAB PO SCH (07:38)
--- NOTE | 2021-06-22 08:23 | Electrocardiogram Report ---
Test Reason : Blood Pressure : / mmHG Vent. Rate : 070 BPM Atrial Rate : 070 BPM P-R Int : 162 ms QRS Dur : 138 ms QT Int : 496 ms P-R-T Axes : 057 -67 051 degrees QTc Int : 535 ms Normal sinus rhythm Right bundle branch block Left anterior fascicular block Left ventricular hypertrophy with QRS widening and repolarization abnormality Abnormal ECG When compared with ECG of 20-JUN-2021 09:38, T wave amplitude has decreased in Inferior leads Nonspecific T wave abnormality has replaced inverted T waves in Lateral leads Confirmed by Faheem Taylor ([id number]) on 06/22/2021 8:22:42 AM Referred By: REFERRED SELF Confirmed By:Faheem Taylor
[2021-06-22] MEDS: PANTOprazole 40 MG in SYRINGE 0 ML IV SCH (12:24)
[2021-06-22] MEDS: POTASSIUM CHLORIDE CRTAB 20 MEQ TABCR PO SCH (13:09)
--- NOTE | 2021-06-22 14:04 | Hospitalist Progress Note ---
Date of Service June 22, 2021 Assessment & Plan (1) Syncope: (2) Diarrhea: (3) Hypotension: (4) Hypokalemia: (5) Metabolic acidosis, increased anion gap: (6) CKD (chronic kidney disease) stage 5, GFR less than 15 ml/min: (7) HTN (hypertension): (8) HLD (hyperlipidemia): Plan: This is a 71-year-old male who has significant past medical history of CKD stage V on peritoneal dialysis, CAD, HTN, HLD, hyperparathyroidism, gout, history of iron deficiency anemia who presents to ED after sustaining a syncopal episode x1. Syncope Mostly due to orthostatic hypotension due to recurrent diarrhea CT head showed no acute intracerebral pathology. No focal neuro deficit stable Acute diarrheal illness Salmonella Gastroenteritis Hypotension likely secondary to orthostasis in setting of volume depletion Stool for salmonella positive Stool for Cdif negative Avoiding quinolones due to QTC prolongation Received IV Zosyn in the ER Continue ceftriaxone IV for now Infection control notified health department that already contacted the patient this morning to investigate it Pt said that health department always contacted him about the Salmonella Continue monitor closely Electrolytes abnormality Potassium 3.2 and magnesium 2.2 today Potassium replaced Continue monitor BMP Bacteremia Blood cx grew gram negative baccilli Sensitivity pending Continue Rocephin IV Repeat blood cx no growth for 24 hrs so far End-stage renal disease Continue peritoneal dialysis at night Nephrology on board Dark stool pt reports Dark/Black stool per nursing it was blue/green FOBT did not collect hgb 10.6 today Will transition to PO PPI HTN Continue to hold atenolol, amlodipine and torsemide If BP improves, will resume meds on at a time ( Atenolol follow by Amlodipine and Torsemide HLD continue statin DVT ppx: On SCD/TEDS for now Will start on heparin subq if hgb stable CODE status FULL CODE Admission and Anticipated Discharge Date Admission Date: June 20, 2021 Subjective Pt was seen and examined for follow up of diarrhea Lying in bed with no acute distress Pt said that diarrhea improves significantly He is very anxious to go home today because he has family member that came from [facility] to visit Denies any chest pain, palpitation, dizziness and SOB Review of Systems Review of Systems: All systems reviewed & are unremarkable except as noted in Subjective Physical Exam Physical Exam: General- No acute distress Head- atraumatic Eyes- PERRL, EOMI, ENT- oropharynx clear Neck- supple, no JVD Lungs- clear to auscultation Heart- regular rhythm; no murmur Abdomen- normal bowel sounds, soft, nontender Extremities- no calf tenderness Neuro- alert, oriented x 3; PERRL, EOMI; no facial palsy; no dysarthria Skin- warm & dry Results & Data Results & Data ([facility]) Vital Signs (Past 12 Hours) Vital Signs Temp Pulse Pulse Resp BP Pulse Ox Pulse Ox 06/22/21 13:00 98 06/22/21 10:53 36.8 C 77 18 121/67 97 06/22/21 08:18 36.9 C 75 18 06/22/21 08:14 62 06/22/21 07:37 36.9 C 75 18 119/63 99 06/22/21 03:55 72 06/22/21 03:22 36.8 C 73 18 97/52 L 98 (1) Syncope Syncope type: unspecified Qualified Code(s): R55 - Syncope and collapse (2) Hypotension Hypotension type: unspecified hypotension type Qualified Code(s): I95.9 - Hypotension, unspecified
--- NOTE | 2021-06-22 17:40 | Nephrology Progress Note ---
Date of Service June 22, 2021 Assessment & Plan (1) ESRD (end stage renal disease) on dialysis: Plan: PD patient > had been getting 4 x 2L exchanges 1.5% since admission; he tells me he usually does manual exchanges at home. creat quite high; some intermittent dyspnea, geeta HS -increase exchanges to 6 and TWO x 2.5% and FOUR x 1.5 % over 14hrs (2) Bacteremia: Plan: GNR x 2 on admission blood cxs and repeat cxs pending. -cont ceftriaxone -low threshold for ID consultation > ? if [place] and [place] sewer line activity is source > non pasteurized eggs? -f/u repeat cxs -note BP meds remain on hold (3) Hypokalemia: Plan: K 3.2 this am; started 20 mEq po K daily (caution since creat 13) -gave 20 po K daily as above and liberalized diet (non dialysis but still low Na) -pt requesting torsemide this evening but need to review K, CXR first >> some orthopnea/sob and may not be having enough UF (4) Salmonella enteritis: Plan: -stool is salmonella + >> await blood cxs; discuss best tx w/ ID (5) Labile blood pressure: Plan: OP atenolol, amlodipine, torsemide on hold. -slightly more aggressive fluid removal on HD but not stringently so -would NOT give torsemide until we see CXR/bmp > may not be appropriate Care coordinated w/ Dr Coffey Admission and Anticipated Discharge Date Admission Date: June 20, 2021 Subjective seen on rounds at approx 1300 > repeat blood cxs pending. pt reports some sob/chest tightness/orthopnea last evening, relieved w/ 50 mg torsemide. diarrhea slowing/firming up. reports he manually declogged the [facility] hat and cap sewer line where it branches to his house and cut his R thumb on a screw in that [place] and [place] sewer; this was same time he ate fresh eggs and about 24 hr before diarrhea began; UOP resumed today per pt after 3 days anuria. 250 mL POSITIVE on UF overnight Review of Systems Review of Systems: All systems reviewed & are unremarkable except as noted in Subjective Physical Exam Constitutional: well developed, well nourished and cooperative; no acute distress on RA Eyes: EOM intact bilaterally ENMT: Ears: no external ear abnormality Nose: no external nose abnormality Mouth: + dry oral mucous membranes Neck: no nuchal rigidity Respiratory: normal respiratory effort Auscultation: + diminished lung sounds Cardiovascular: RRR, no murmur, no edema Gastrointestinal (Abdomen): Inspection/Auscultation: normal bowel sounds Percussion/Palpation: abdomen soft; abdomen nontender PD cath present Musculoskeletal: Extremities: strength 5/5 throughout Skin: no rashes, warm and dry Neurologic: mobley, fluent speech, no tremor Results & Data ([facility]) Vital Signs (Past 12 Hours) Vital Signs Temp Pulse Pulse Resp BP Pulse Ox Pulse Ox 06/22/21 16:08 75 06/22/21 16:00 36.7 C 72 18 119/62 96 06/22/21 13:00 98 06/22/21 10:53 36.8 C 77 18 121/67 97 06/22/21 08:18 36.9 C 75 18 06/22/21 08:14 62 06/22/21 07:37 36.9 C 75 18 119/63 99 Laboratory Results 06/21/21 08:36 06/21/21 14:54
[2021-06-22] MEDS: cefTRIAXone SODIUM 1,000 MG in DEXTROSE 5% 50 ML IV SCH (17:57)
[2021-06-22 18:04] LABS: BUN Creatinine Ratio 5.4 (10-20); Creatinine Clr Calc Pharmacy 4.8 ml/min; Est GFR (African American) 3.8 ml/min; Est GFR (Non-African American) 3.3 ml/min; Potassium 3.7 mmol/L (3.5-5.1)
--- NOTE | 2021-06-22 18:05 | XRay Report ---
XR chest 1V portable HISTORY: hx of orthopnea, intermittent shortness of breath COMPARISON: Chest 06/21/2021. FINDINGS: The lungs are clear. Cardiac silhouette is normal in size. No pleural effusions. No pneumot horax. IMPRESSION: No acute process. ACT 112: Negative or not required by law. Electronically signed by: Abelardo Lozano M.D. 06/22/2021 6:04 PM
[2021-06-22] MEDS: CALCIUM CARBONATE 500 MG CHEWABLE TAB PO SCH (21:50)
[2021-06-23 06:03] LABS: Hematocrit (blood only) 29.4 % (42-52); Hemoglobin 9.8 g/dL (14.0-18.0); Mean Corpuscular Hemoglobin 32.5 pg (25-34); Mean Corpuscular Hgb Conc 33.3 g/dL (32-36); Mean Corpuscular Volume 97.4 fL (80-100); Mean Platelet Volume 9.4 fL (7.4-10.4); Platelet Count 322 K/uL (130-400); RDW Coefficient of Variation 14.6 % (11.5-14.5); RDW Standard Deviation 52.1 fL (36.4-46.3); Red Blood Count 3.02 M/uL (4.7-6.1); White Blood Count 9.72 K/uL (4.8-10.8)
[2021-06-23 06:39] LABS: BUN Creatinine Ratio 5.6 (10-20); Calcium 7.8 mg/dl (8.5-10.1); Creatinine Clr Calc Pharmacy 5.7 ml/min; Est GFR (African American) 4.7 ml/min; Potassium 3.1 mmol/L (3.5-5.1)
[2021-06-23] MEDS: CHOLECALCIFEROL 1,000 UNITS 25 MCG TAB PO SCH (07:58)
[2021-06-23] MEDS: POTASSIUM CHLORIDE CRTAB 20 MEQ TABCR PO SCH ×2 (07:58→20:10)
[2021-06-23] MEDS: allopurinoL 300 MG TAB PO SCH (07:58)
[2021-06-23] MEDS: ASPIRIN 81 MG ECTAB PO SCH (07:58)
[2021-06-23] MEDS ORDERED: POTASSIUM CHLORIDE CRTAB 20 MEQ TABCR PO STA (09:27)
[2021-06-23] MEDS ORDERED: chlorproMAZINE HCL 10 MG TAB PO ONE (10:57)
[2021-06-23] MEDS: PANTOprazole 40 MG in SYRINGE 0 ML IV SCH (11:18)
--- NOTE | 2021-06-23 15:52 | Nephrology Progress Note ---
Date of Service June 23, 2021 Assessment & Plan (1) ESRD (end stage renal disease) on dialysis: Plan: PD patient > had been getting 4 x 2L exchanges 1.5% since admission until 06/22; he tells me he usually does manual exchanges at home. creat quite high; no further dypsnea and CXR clear -cont increased exchanges (6) and all 1.5 % over 14hrs (2) Bacteremia: Plan: salmonella species on 06/11 admission blood cxs and repeat cxs pending, 06/21 NGTD. -cont ceftriaxone > likely to need midline (this is preferable to PICC as it preserves future hemodialysis access) -tomorrow for ID consultation > ? if sewer hand line activity is source > non pasteurized eggs? -f/u repeat cxs; TTE planned -note BP meds remain on hold (3) Hypokalemia: Plan: K 3.1 this am; increased to 20 mEq po K bid (caution since creat 11) -increase K daily as above and liberalized diet (non dialysis but still low Na) -continue to hold torsemide (4) Salmonella enteritis: Plan: -stool is salmonella + >> await blood cxs; discuss best tx w/ ID (5) Labile blood pressure: Plan: OP atenolol, amlodipine, torsemide on hold. -continue to hold OP BP meds -liberalized diet to regular > no low sodium Care coordinated w/ Dr Coffey Admission and Anticipated Discharge Date Admission Date: June 20, 2021 Subjective daughter and granchild at bedside; pt feels well; no sob or chest discomfort last evening; more hiccups; 2642 mL UF Review of Systems Review of Systems: All systems reviewed & are unremarkable except as noted in Subjective Physical Exam Constitutional: well developed, well nourished and cooperative; no acute distress on RA Eyes: EOM intact bilaterally ENMT: Ears: no external ear abnormality Nose: no external nose abnormality Mouth: + dry oral mucous membranes Neck: no nuchal rigidity Respiratory: normal respiratory effort Auscultation: + diminished lung sounds Cardiovascular: RRR, no murmur, no edema Gastrointestinal (Abdomen): Inspection/Auscultation: normal bowel sounds Percussion/Palpation: abdomen soft; abdomen nontender PD cath present Musculoskeletal: Extremities: strength 5/5 throughout Skin: no rashes, warm and dry Neurologic: mobley, fluent speech, no tremor Psychiatric: Orientation: oriented x 3 Results & Data ([facility]) Vital Signs (Past 12 Hours) Vital Signs Temp Pulse Pulse Resp BP Pulse Ox Pulse Ox 06/23/21 15:10 78 06/23/21 13:00 97 06/23/21 11:19 78 18 98/68 L 97 06/23/21 08:45 71 06/23/21 07:53 36.9 C 86 16 124/71 97 06/23/21 04:03 36.5 C 76 20 109/61 96 Laboratory Results 06/23/21 05:22 06/23/21 05:22
[2021-06-23] MEDS: cefTRIAXone SODIUM 1,000 MG in DEXTROSE 5% 50 ML IV SCH (18:14)
--- NOTE | 2021-06-23 19:00 | Hospitalist Progress Note ---
Date of Service June 23, 2021 Assessment & Plan (1) Syncope: (2) Diarrhea: (3) Hypotension: (4) Hypokalemia: (5) Metabolic acidosis, increased anion gap: (6) CKD (chronic kidney disease) stage 5, GFR less than 15 ml/min: (7) HTN (hypertension): (8) HLD (hyperlipidemia): Plan: This is a 71-year-old male who has significant past medical history of CKD stage V on peritoneal dialysis, CAD, HTN, HLD, hyperparathyroidism, gout, history of iron deficiency anemia who presents to ED after sustaining a syncopal episode x1. Syncope Mostly due to orthostatic hypotension due to recurrent diarrhea CT head showed no acute intracerebral pathology. No focal neuro deficit stable Acute diarrheal illness Salmonella Gastroenteritis Hypotension likely secondary to orthostasis in setting of volume depletion Stool for salmonella positive Stool for Cdif negative Avoiding quinolones due to QTC prolongation Received IV Zosyn in the ER Continue ceftriaxone IV for now Infection control notified health department that already contacted the patient this morning to investigate it Pt said that health department always contacted him about the Salmonella Diarrhea improve significantly Continue monitor closely Bacteremia Salmonella species Blood cx grew gram negative baccilli- salmonella species (Source could be from the farm chickens vs disimpacted [place] sewer line where he cut his right thumb) ID consulted case discussed with mechatronics technologist ID Dr. Chau today Continue Rocephin IV Will get an echo to r/o any endocarditis - Will need IV rocephin on discharge - duration depend on echo result Repeat blood cx no growth for [address] a midline in am for outpatient abx infusion Electrolytes abnormality Potassium 3.1 today Potassium replaced Continue monitor BMP End-stage renal disease Continue peritoneal dialysis at night Nephrology on board Dark stool pt reports Dark/Black stool FOBT did not collect hgb 9.8 today Will transition to PO PPI HTN Continue to hold atenolol, amlodipine and torsemide If BP improves, will resume meds on at a time ( Atenolol follow by Amlodipine and Torsemide HLD continue statin DVT ppx: On SCD/TEDS for now Will start on heparin subq if hgb stable CODE status FULL CODE Admission and Anticipated Discharge Date Admission Date: June 20, 2021 Subjective Pt was seen and examined for follow up of diarrhea and bacteremia Lying in bed with no acute distress. Pt said that diarrhea improves significantly (only had 1 episode so far) He is very anxious to go home, but agreed to stay to talk to ID since blood cx grew salmonella species Denies any chest pain, palpitation, dizziness and SOB Review of Systems Review of Systems: All systems reviewed & are unremarkable except as noted in Subjective Physical Exam Physical Exam: General- No acute distress Head- atraumatic Eyes- PERRL, EOMI, ENT- oropharynx clear Neck- supple, no JVD Lungs- clear to auscultation Heart- regular rhythm; no murmur Abdomen- normal bowel sounds, soft, nontender Extremities- no calf tenderness Neuro- alert, oriented x 3; PERRL, EOMI; no facial palsy; no dysarthria Skin- warm & dry Results & Data Results & Data ([facility]) Vital Signs (Past 12 Hours) Vital Signs Temp Pulse Pulse Resp BP Pulse Ox Pulse Ox 06/23/21 18:05 36.9 C 79 15 128/66 06/23/21 16:11 36.9 C 84 18 98/60 L 96 06/23/21 15:10 78 06/23/21 13:00 97 06/23/21 12:10 36.9 C 83 18 06/23/21 11:19 78 18 98/68 L 97 06/23/21 08:45 71 06/23/21 07:53 36.9 C 86 16 124/71 97 (1) Syncope Syncope type: unspecified Qualified Code(s): R55 - Syncope and collapse (2) Hypotension Hypotension type: unspecified hypotension type Qualified Code(s): I95.9 - Hypotension, unspecified
[2021-06-23] MEDS: METOCLOPRAMIDE HCL 5 MG TABLET PO PRN (20:11)
[2021-06-23] MEDS: CALCIUM CARBONATE 500 MG CHEWABLE TAB PO SCH (20:15)
[2021-06-24] MEDS: CHOLECALCIFEROL 1,000 UNITS 25 MCG TAB PO SCH (07:56)
[2021-06-24] MEDS: allopurinoL 300 MG TAB PO SCH (07:57)
[2021-06-24] MEDS: ASPIRIN 81 MG ECTAB PO SCH (07:57)
[2021-06-24 08:51] LABS: Mean Corpuscular Hemoglobin 33.2 pg (25-34); Mean Corpuscular Hgb Conc 34.4 g/dL (32-36); Mean Corpuscular Volume 96.7 fL (80-100); Mean Platelet Volume 8.7 fL (7.4-10.4); Platelet Count 344 K/uL (130-400); RDW Coefficient of Variation 14.8 % (11.5-14.5); RDW Standard Deviation 52.3 fL (36.4-46.3); Red Blood Count 3.31 M/uL (4.7-6.1); White Blood Count 11.08 K/uL (4.8-10.8)
[2021-06-24 09:22] LABS: BUN Creatinine Ratio 5.2 (10-20); Calcium 7.5 mg/dl (8.5-10.1); Est GFR (Non-African American) 4.3 ml/min
--- NOTE | 2021-06-24 10:03 | Nephrology Progress Note ---
Date of Service June 24, 2021 Assessment & Plan (1) ESRD (end stage renal disease) on dialysis: Plan: PD patient > had been getting 4 x 2L exchanges 1.5% since admission until 06/22; he tells me he usually does manual exchanges at home. creat quite high; no further dypsnea and CXR clear -cont increased exchanges (6) and all 1.5 % over 14hrs most likely but will re assess later today depending on BP (2) Bacteremia: Plan: salmonella species on 06/11 admission blood cxs and repeat cxs pending, 06/21 NGTD. -cont ceftriaxone > likely to need midline (this is preferable to PICC as it preserves future hemodialysis access) -f/u recs from ID consultation > ? if [place] sewer line activity is source > non past eurized eggs? -f/u repeat cxs; TTE planned -note BP meds remain on hold (3) Hypokalemia: Plan: K 3.0 this am; increased to 20 mEq po K bid (caution since creat 10) -will further increase K daily as above and continue liberalized diet (non dialysis but still low Na) -continue to hold torsemide (4) Salmonella enteritis: Plan: -stool is salmonella + >> await blood cxs; discuss best tx w/ ID (5) Labile blood pressure: Plan: OP atenolol, amlodipine, torsemide on hold. -continue to hold OP BP meds -continue liberalized diet to regular > no low sodium Admission and Anticipated Discharge Date Admission Date: June 20, 2021 Subjective no interval events clinically except ongoing hiccups. also c/o throat tightness w/o sob and asking about it > advised him to discuss with primary service; diarrhea resolved/BM formed Review of Systems Review of Systems: All systems reviewed & are unremarkable except as noted in Subjective Physical Exam Constitutional: well developed, well nourished and cooperative; no acute distress Eyes: EOM intact bilaterally ENMT: Ears: no external ear abnormality Nose: no external nose abnormality Mouth: + dry oral mucous membranes Neck: no nuchal rigidity Respiratory: normal respiratory effort Auscultation: + diminished lung sounds Cardiovascular: RRR, no murmur, no edema Gastrointestinal (Abdomen): Inspection/Auscultation: normal bowel sounds Percussion/Palpation: abdomen soft; abdomen nontender Musculoskeletal: Extremities: strength 5/5 throughout Skin: no rashes, warm and dry Neurologic: mobley, fluent speech, no tremor Psychiatric: Orientation: oriented x 3 Results & Data ([facility]) Vital Signs (Past 12 Hours) Vital Signs Temp Pulse Pulse Resp BP Pulse Ox 06/24/21 08:18 36.7 C 86 18 06/24/21 08:03 36.7 C 86 18 128/70 99 06/24/21 00:00 83 06/23/21 23:59 36.5 C 77 22 104/50 L 95 Laboratory Results 06/24/21 08:32 06/24/21 08:32
[2021-06-24] MEDS: POTASSIUM CHLORIDE CRTAB 20 MEQ TABCR PO SCH ×3 (10:33→20:12)
[2021-06-24] MEDS ORDERED: chlorproMAZINE HCL 10 MG TAB PO ONE (12:15)
[2021-06-24] MEDS: PANTOprazole 40 MG in SYRINGE 0 ML IV SCH (12:35)
[2021-06-24] MEDS: METOCLOPRAMIDE HCL 5 MG TABLET PO PRN ×2 (13:39→20:14)
--- NOTE | 2021-06-24 14:29 | Hospitalist Progress Note ---
Date of Service June 24, 2021 Assessment & Plan (1) Syncope: (2) Diarrhea: (3) Hypotension: (4) Hypokalemia: (5) Metabolic acidosis, increased anion gap: (6) CKD (chronic kidney disease) stage 5, GFR less than 15 ml/min: (7) HTN (hypertension): (8) HLD (hyperlipidemia): Plan: This is a 71-year-old male who has significant past medical history of CKD stage V on peritoneal dialysis, CAD, HTN, HLD, hyperparathyroidism, gout, history of iron deficiency anemia who presents to ED after sustaining a syncopal episode x1. Syncope Mostly due to orthostatic hypotension due to recurrent diarrhea CT head showed no acute intracerebral pathology. No focal neuro deficit resolved Acute diarrheal illness Salmonella Gastroenteritis Hypotension likely secondary to orthostasis in setting of volume depletion Stool for salmonella positive Stool for Cdif negative Avoiding quinolones due to QTC prolongation Received IV Zosyn in the ER Continue ceftriaxone IV for now Infection control notified health department that already contacted the patient this morning to investigate it Pt said that health department always contacted him about the Salmonella Diarrhea improves significantly Continue monitor closely Bacteremia Salmonella species Blood cx grew gram negative baccilli- salmonella species (Source could be from the farm chickens vs disimpacted town sewer line repairer line where he cut his right thumb) ID consulted case discussed with contact lens flashing puncher ID Dr. Chau today Continue Rocephin IV ECHO showed no evidence of mass and vegetation ID consult pending for final antibiotic and duration Repeat blood cx no growth for [address] a midline in today for outpatient abx infusion Case discussed with casework manager and will arrange for outpatient antibiotic infusion Electrolytes abnormality Potassium 3.0 today Potassium replaced Continue monitor BMP End-stage renal disease Continue peritoneal dialysis at night Nephrology on board Dark stool pt reports Dark/Black stool FOBT did not collect hgb 11 today IV PPI changed to PO PPI HTN Continue to hold atenolol, amlodipine and torsemide If BP improves, will resume meds on at a time ( Atenolol follow by Amlodipine and Torsemide HLD continue statin DVT ppx: On SCD/TEDS for now Heparin subq added CODE status FULL CODE Disposition Plan to discharge tomorrow Admission and Anticipated Discharge Date Admission Date: June 20, 2021 Subjective Pt was seen and examined for follow up of diarrhea and bacteremia Lying in bed with no acute distress. Pt said that his diarrhea control He said that his only problem is the hiccups that he continues to have that keeps him awake at night Denies any chest pain, palpitation, dizziness and SOB Review of Systems Review of Systems: All systems reviewed & are unremarkable except as noted in Subjective Physical Exam Physical Exam: General- No acute distress Head- atraumatic Eyes- PERRL, EOMI, ENT- oropharynx clear Neck- supple, no JVD Lungs- clear to auscultation Heart- regular rhythm; no murmur Abdomen- normal bowel sounds, soft, nontender Extremities- no calf tenderness Neuro- alert, oriented x 3; PERRL, EOMI; no facial palsy; no dysarthria Skin- warm & dry Results & Data Results & Data ([facility]) Vital Signs (Past 12 Hours) Vital Signs Temp Pulse Pulse Resp BP Pulse Ox 06/24/21 11:33 36.6 C 84 19 126/63 98 06/24/21 08:18 36.7 C 86 18 06/24/21 08:03 36.7 C 86 18 128/70 99 06/24/21 06:15 80 (1) Syncope Syncope type: unspecified Qualified Code(s): R55 - Syncope and collapse (2) Hypotension Hypotension type: unspecified hypotension type Qualified Code(s): I95.9 - Hypotension, unspecified
[2021-06-24] MEDS: cefTRIAXone SODIUM 1,000 MG in DEXTROSE 5% 50 ML IV SCH (17:34)
[2021-06-24] MEDS ORDERED: ZOLPIDEM TARTRATE 5 MG TAB PO PRN (20:09)
[2021-06-24] MEDS: HEPARIN SOD 5,000 UNIT/0.5 ML VIAL SQ SCH (20:11)
[2021-06-24] MEDS: CALCIUM CARBONATE 500 MG CHEWABLE TAB PO SCH (20:19)
[2021-06-24] MEDS ORDERED: COUGH DROP (SUGAR FREE) LOZ 24 LOZ/1 BOX BUCCAL STA (22:33)
[2021-06-24] MEDS ORDERED: METOCLOPRAMIDE HCL INJ 5 MG/ML 2 ML VIAL IV ONE (22:38)
[2021-06-25] MEDS ORDERED: POTASSIUM CHLORIDE CRTAB 20 MEQ TABCR PO SCH (03:15)
[2021-06-25 03:57] LABS: Basophils # (auto) 0.05 K/uL (0-0.2); Basophils % (auto) 0.4 %; Eosinophils # (auto) 0.38 K/uL (0-0.5); Eosinophils % (auto) 3.1 %; Hematocrit (blood only) 29.3 % (42-52); Hemoglobin 9.7 g/dL (14.0-18.0); Immature Granulocytes # (auto) 0.53 K/uL (0.00-0.02); Immature Granulocytes % (auto) 4.3 %; Lymphocytes # (auto) 2.15 K/uL (1.2-3.4); Lymphocytes % (auto) 17.5 %; Mean Corpuscular Hemoglobin 32.3 pg (25-34); Mean Corpuscular Hgb Conc 33.1 g/dL (32-36); Mean Corpuscular Volume 97.7 fL (80-100); Monocytes # (auto) 1.95 K/uL (0.11-0.59); Monocytes % (auto) 15.9 %; Neutrophils # (auto) 7.23 K/uL (1.4-6.5); Neutrophils % (auto) 58.8 %; Platelet Count 336 K/uL (130-400); RDW Coefficient of Variation 14.8 % (11.5-14.5); RDW Standard Deviation 52.7 fL (36.4-46.3); White Blood Count 12.29 K/uL (4.8-10.8)
[2021-06-25 05:29] LABS: BUN Creatinine Ratio 5.5 (10-20); Calcium 8.3 mg/dl (8.5-10.1); Creatinine Clr Calc Pharmacy 6.2 ml/min; Est GFR (African American) 5.2 ml/min; Est GFR (Non-African American) 4.4 ml/min; Magnesium 1.5 mg/dl (1.7-2.4); Potassium 4.2 mmol/L (3.5-5.1)
--- NOTE | 2021-06-25 07:58 | XRay Report ---
XR chest 1V portable CLINICAL HISTORY: Shortness of breath. COMPARISON STUDY: Chest radiograph June 22, 2021. FINDINGS: Lung volumes are normal. Lungs are clear. There is no pneumothorax or pleural effusion. Car diac size is normal. Mediastinal contours are normal. There is no evidence for pulmonary edema. IMPRESSION: No acute cardiopulmonary findings. ACT 112: Negative or not required by law. Electronically signed by: Daniel Mitchell M.D. 06/25/2021 7:56 AM
[2021-06-25] MEDS ORDERED: cefTRIAXone SODIUM 2,000 MG in DEXTROSE 5% 50 ML IV SCH (09:00)
[2021-06-25] MEDS ORDERED: PANTOprazole 40 MG TAB PO SCH ×2 (09:00)
[2021-06-25] MEDS: ASPIRIN 81 MG ECTAB PO SCH (09:22)
[2021-06-25] MEDS: CHOLECALCIFEROL 1,000 UNITS 25 MCG TAB PO SCH (09:22)
[2021-06-25] MEDS: allopurinoL 300 MG TAB PO SCH (09:23)
[2021-06-25] MEDS: HEPARIN SOD 5,000 UNIT/0.5 ML VIAL SQ SCH (09:24)
--- NOTE | 2021-06-25 13:06 | Discharge Summary ---
Date of Service June 25, 2021 Admission HPI Per Admitting Provider This is a 71-year-old male who has significant past medical history of CKD stage V on peritoneal dialysis, CAD, HTN, HLD, hyperparathyroidism, gout, history of iron deficiency anemia who presents to ED after sustaining a syncopal episode x1. Patient developed profuse diarrhea starting yesterday. He has had approximately 20 episodes of loose watery diarrhea. He did have a one-time episode of fever yesterday at 1-1.9. It resolved with Tylenol. He denies any abdominal pain, but describes abdominal gurgling with diarrhea episodes. He has been going approximately every 30 minutes. He describes the diarrhea as dark, but not tarry or bloody. This morning at approximately 2 AM he got the urge to have a bowel movement. When he got to the edge of his bed and went to stand up he felt lightheaded, dizzy and felt like he was going to pass out. He also got very sweaty. He ended up passing out falling on the floor and hitting his head on a carpeted floor. Is unsure how long he was out. He was able to get himself off the floor and back into bed. At approximately 7 AM he had to have another bowel movement. When walking back from the bathroom he tried to sit on his bed and fell on his floor. He did not lose consciousness this time. He feels he just misjudged the bed. He did land on his left side. He denies any injury, headache, change in vision or change in hearing. Patient was able to get hims elf back in bed and called his daughter. His daughter urged him to come to ED. Patient does have CKD stage V and is on peritoneal dialysis. He did not have do his peritoneal dialysis last night secondary to losing so much fluid. He also did not take his torsemide yesterday or today. His appetite has been very poor and his intake has been minimal.He denies any chills, chest pain, shortness of breath, cough, URI symptoms, nausea, vomiting, dysuria, increased urination, melena or hematochezia. Patient summoned EMS and was found to be hypotensive. He did not take any of his meds today. In ED SBP was in 80s-90s. He received 1L of IVF and already feels improved. 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 He is fully vaxed and boosted. Patient admits to hitting his head but no injury. CT of head in ED revealed mild cerebral cortical atrophy but otherwise no acute abnormalities. He has no acute injury to the head. Patient's records were reviewed in [facility]. His previous creatinine on 05/22/2020 was 5.9. His hemoglobin at that time was 9.5. Admission Exam Per Admitting Provider Constitutional: WD/WN, thin, male vitals as above, NAD, sitting up in bed, pleasant, conversing easily Head: Normocephalic, Atraumatic Eyes: PERRL, conjunctivae normal, anicteric sclerae ENMT: external ear and nose normal, oropharynx normal Neck: trachea midline, no thyromegaly normal visual inspection Respiratory: normal respiratory effort, lungs clear to auscultation, no wheeze, rales, rhonchi. Normal insp/exp effort, no accessory muscle use Cardiovascular: RRR, no murmur, no edema Vessels: no JVD or carotid bruit Chest: normal inspection of chest Abdomen: normal bowel sounds, soft, nontender, no hepatosplenomegaly + PD cath site, no erythema Musculoskeletal: no cyanosis or clubbing, extremities motor strength 5/5 Skin: no rashes, warm and dry normal turgor Neurologic: PERRL, EOMI, accommodation nl, no face palsy, no dysarthria CN's II-XI intact bilaterally and moves all extremities Psychiatric: A+Ox3, euthymic affect Lymphatic: no cervical or axillary lymphadenopathy : deferred Principal Diagnosis (1) Syncope: (2) Diarrhea: (3) Hypotension: (4) Hypokalemia: (5) Metabolic acidosis, increased anion gap: (6) CKD (chronic kidney disease) stage 5, GFR less than 15 ml/min: (7) HTN (hypertension): (8) HLD (hyperlipidemia): Discharge Exam General- No acute distress Head- atraumatic Eyes- PERRL, EOMI, ENT- oropharynx clear Neck- supple, no JVD Lungs- clear to auscultation Heart- regular rhythm; no murmur Abdomen- normal bowel sounds, soft, nontender Extremities- no calf tenderness Neuro- alert, oriented x 3; PERRL, EOMI; no facial palsy; no dysarthria Skin- warm & dry Discharge Data Allergies Allergy/AdvReac Type Severity Reaction Status Date / Time lisinopril AdvReac Mild COUGH Verified 06/20/21 11:57 Consultations 06/20/21 12:13 Consult Nephrology Routine 06/20/21 12:16 ED Decision to Admit Stat 06/23/21 11:25 Consult Infectious Diseases Routine Ordered Studies 06/20/21 10:41 CT head/brain wo con Stat XR chest 1V portable CLINICAL HISTORY: Shortness of breath. COMPARISON STUDY: Chest radiograph June 22, 2021. FINDINGS: Lung volumes are normal. Lungs are clear. There is no pneumothorax or pleural effusion. Cardiac size is normal. Mediastinal contours are normal. There is no evidence for pulmonary edema. IMPRESSION: No acute cardiopulmonary findings. ACT 112: Negative or not required by law. Electronically signed by: Daniel Mitchell M.D. 06/25/2021 7:56 AM Dictated:06/25/21755 Transcribed: 06/25/21755 XR chest 1V portable HISTORY: hx of orthopnea, intermittent shortness of breath COMPARISON: Chest 06/21/2021. FINDINGS: The lungs are clear. Cardiac silhouette is normal in size. No pleural effusions. No pneumothorax. IMPRESSION: No acute process. ACT 112: Negative or not required by law. Electronically signed by: Abelardo Lozano M.D. 06/22/2021 6:04 PM Dictated:06/22/211801 Transcribed: 06/22/211801 XR chest 1V portable HISTORY: 71 years-old Male sob acute shortness of breath COMPARISON: Chest radiograph 06/20/2021 TECHNIQUE: Portable AP view of the chest FINDINGS: Cardiomediastinal and hilar silhouettes are within normal limits. No pneumothorax, pleural effusion, airspace consolidation or overt pulmonary edema. Atherosclerosis of the aorta. Degenerative changes of the shoulders and spine. Bones appear grossly intact. IMPRESSION: No acute process. ACT 112: Negative or not required by law. The above report was generated using voice recognition software. It may contain grammatical, syntax or spelling errors. Electronically signed by: Cortez Guerrero M.D. 06/21/2021 11:15 PM Dictated:06/21/212313 Transcribed: 06/21/212313 CT head/brain wo con CLINICAL HISTORY: Status post fall with trauma to the forehead. Pain 01/19/2008 COMPARISON STUDY: No previous studies for comparison. CT DOSE: 537.48 mGy.cm TECHNIQUE: Standard CT of the Brain was performed without IV contrast. A dose lowering technique was utilized adhering to the principles of ALARA. FINDINGS: Extraaxial space: There is no evidence for subdural hematoma. There are no extra-axial fluid collections. Ventricles and cisterns: The ventricles are mildly dilated bilaterally. There is no evidence for midline shift or mass effect. Parenchyma: There is no subarachnoid or intraparenchymal hemorrhage. There is no evidence for an acute infarct or cerebral edema. There is mild cerebral cortical atrophy and decreased attenuation in the periventricular white matter repr esenting remote small vessel disease. There are no gross mass lesions. Osseous structures: There is no evidence for an acute fracture. The visualized paranasal sinuses are clear. The mastoid air cells are clear bilaterally. Soft tissues: There is no evidence for focal soft tissue swelling. IMPRESSION: 1. No acute intracerebral pathology. 2. Mild cerebral cortical atrophy and remote small vessel disease. ACT 112: Negative or not required by law. Electronically signed by: Jose Fields M.D. 06/20/2021 11:11 AM Dictated:06/20/21 1109 Transcribed: 06/20/21 110 XR chest 1V portable HISTORY: 71 years-old Male weakness acute weakness COMPARISON: 01/19/2008 TECHNIQUE: Portable AP view of the chest FINDINGS: Cardiac mediastinal and hilar silhouettes are within normal limits. Calcified plaque of the thoracic aorta. No pneumothorax, pleural effusion, airspace consolidation or overt pulmonary edema. The bones of the chest appear grossly intact. Spondylitic spurring of the spine. IMPRESSION: No acute process. ACT 112: Negative or not required by law. The above report was generated using voice recognition software. It may contain grammatical, syntax or spelling errors. Electronically signed by: Cortez Guerrero M.D. 06/20/2021 10:48 AM Dictated:06/20/21 1045 Transcribed: 06/20/21 104 Hospital Course (1) Syncope: (2) Diarrhea: (3) Hypotension: (4) Hypokalemia: (5) Metabolic acidosis, increased anion gap: (6) CKD (chronic kidney disease) stage 5, GFR less than 15 ml/min: (7) HTN (hypertension): (8) HLD (hyperlipidemia): This is a 71-year-old male who has significant past medical history of CKD stage V on peritoneal dialysis, CAD, HTN, HLD, hyperparathyroidism, gout, history of iron deficiency anemia who presents to ED after sustaining a syncopal episode x1. Syncope Mostly due to orthostatic hypotension due to recurrent diarrhea CT head showed no acute intracerebral pathology. No focal neuro deficit resolved Acute diarrheal illness Salmonella Gastroenteritis Hypotension likely secondary to orthostasis in setting of volume depletion Stool for salmonella positive Stool for Cdif negative Avoiding quinolones due to QTC prolongation Received IV Zosyn in the ER Continue ceftriaxone IV for now Infection control notified health department that already contacted the patient this morning to investigate it Pt said that health department always contacted him about the Salmonella Diarrhea improves significantly Continue monitor closely Bacteremia Salmonella species Blood cx grew gram negative baccilli- salmonella species (Source could be from the farm chickens vs disimpacted town hand sewer line where he cut his right thumb) ID consulted case discussed with regional education coordinator ID Dr. Chau today Continue Rocephin IV ECHO showed no evidence of mass and vegetation Repeat blood cx no growth for 96 hrs so far ID on board recommended to complete 14 days of IV rocephin Will check CBC an CMP while on IV Rocephin Case discussed with patient case coordinator and she is arranged for outpatient antibiotic infusion Plan to discharge home today Electrolytes abnormality Potassium 4.2 today case discussed with Nephrology that recommended to discharge on potassium 40mg daily Mg 1.5 today - Mg replaced Check BMP and Mg level in 2-3 days ( No later than Thursday) End-stage renal disease Continue peritoneal dialysis at night Nephrology on board Dark stool pt reports Dark/Black stool FOBT did not collect Hgb stable IV PPI changed to PO PPI HTN Continue to hold atenolol, amlodipine and torsemide If BP improves, will resume meds on at a time ( Atenolol follow by Amlodipine and Torsemide Will resume Atenolol on discharge Amlodipine and Torsemide hold for now. She will follow with PCP and will advise him when to resume it HLD continue statin DVT ppx: On SCD/TEDS for now Heparin subq added CODE status FULL CODE Disposition Plan to discharge home with HH today Total Time Total Time Spent Total Time Spent (In Minutes): 35 minutes Discharge Plan Discharge Items Patient Disposition: Home - Home Health Services Reason For Visit: SYNCOPE Discharge Diagnosis: (1) Syncope: (2) Diarrhea: (3) Hypotension: (4) Hypokalemia: (5) Metabolic acidosis, increased anion gap: (6) CKD (chronic kidney disease) stage 5, GFR less than 15 ml/min: (7) HTN (hypertension): (8) HLD (hyperlipidemia): Activity: Resume your previous activity Non-emergency contact: Primary Care Provider and Health Researcher Call non-emergency contact if: you have any medication questions Follow-up/Referrals: Hansa Mata MD, PhD [Physician] - Kiel Barkley MD [Primary Care Provider] - 07/02/21 10:20 am (Date & Time 07/02/2021 10:20 AM Provider Kiel Barkley MD Department [facility] ) Diet: Dialysis Renal Addtl Attending Provider Instructions: Follow up with your primary care provider Dr. Barkley on 07/02/2021 @ 10:20 AM at the [facility] Follow up with nephrology Complete the course of the antibiotic with Ceftriaxone Continue monitor you blood pressure Continue to hold your blood pressure medication with Torsemide and amlodipine (Your provider will advise you when to resume them) Check CBC and CMP weekly while on IV Rocephin Check magnesium level in 1 week Continue peritoneal dialysis Potassium was low during the hospital course. Please take potassium 40 meq once a day. Check BMP on (No later than Thursday) to monitor closely your potassium level since you are taking potassium supplement Seek medical attention if your symptoms reoccur or develop any fever Pending Studies at Discharge: No Stand-Alone Forms: My [facility] [employer], Smoking Cessation Medications and DC Order Prescriptions: New ceftriaxone 2 gram recon soln 2 g IV DAILY Qty: 9 RF: 0 potassium chloride 20 mEq tablet extended release 40 meq PO DAILY Qty: 60 RF: 0 Continued atorvastatin 40 mg tablet 40 mg PO QAM RF: 0 atenolol 25 mg tablet 25 mg PO QAM RF: 0 aspirin 81 mg Tablet,Delayed Release (Dr/Ec) 81 mg PO QAM RF: 0 acetaminophen [Tylenol Extra Strength] 500 mg Tablet 1,000 mg PO Q6H PRN (Reason: Fever) RF: 0 docusate sodium 100 mg Capsule 100 mg PO QAM RF: 0 allopurinol 300 mg tablet 300 mg PO QAM RF: 0 cholecalciferol (vitamin D3) [Vitamin D3] 25 mcg (1,000 unit) Tablet 25 mcg PO QAM RF: 0 calcium carbonate [Tums] 200 mg calcium (500 mg) Tablet,Chewable 200 mg PO HS RF: 0 Discontinued amlodipine 5 mg tablet 5 mg PO BID RF: 0 torsemide 100 mg tablet 50 mg PO QAM RF: 0 Discharge Orders: Discharge Order (Routine); Ordered 06/25/21 Ordered By: Wendy Coffey Admission Data Admit Date/Time: 06/20/21 12:13 Attending Provider: Wendy Coffey Admit Provider: Nehemiah Rojas Primary Care Provider: Kiel Barkley Other Providers: Fredy Mcdaniel ; Nehemiah Rojas ; Christiano Osborne ; Bijan Albright ; Frank Engle I. ; Parviz Santana II ; Rebecca Nevarez ; Kiel Briscoe ; Amilcar Petersen ; [place] Other Interventions: Discharge Summary Assessment (RN) Last Done: 06/25/21 16:41
--- NOTE | 2021-06-25 13:34 | Nephrology Progress Note ---
Date of Service June 25, 2021 Assessment & Plan (1) ESRD (end stage renal disease) on dialysis: Plan: PD patient > had been getting 4 x 2L exchanges 1.5% since admission until 06/22; he tells me he usually does manual exchanges at home. creat quite high but improved w/ aggressive exchanges NEPH RECS at d/c: >resume OP PD prescription at d/c >d/c on K 40 mEq daily >f/u bmp on 06/27 and 07/01 > forward results to Dr Fredy Mcdaniel -resume atenolol but hold amlodipine, torsemide -continue liberalized diet at d/c > no low sodium, no low K Care coordinated with Dr Coffey (2) Bacteremia: Plan: salmonella species on 06/11 admission blood cxs and repeat cxs pending, 06/21 NGTD. -cont ceftriaxone > likely to need midline (this is preferable to PICC as it preserves future hemodialysis access) -f/u recs from ID consultation > ? if drapery sewer hand line activity is source > non pasteurized eggs? -f/u repeat cxs; TTE planned -note BP meds remain on hold >>for 14 days minimum ceftriaxone (3) Hypokalemia: Plan: K 4.2 this am; increased to 20 mEq po K bid (caution since creat 10) -will further increase K daily as above and continue liberalized diet (non dialysis but still low Na) -continue to hold torsemide >d/c on K 40 mEq daily >f/u bmp on 06/27 and 07/01 (4) Salmonella enteritis: Plan: -stool is salmonella + >> await blood cxs; per ID (5) Labile blood pressure: Plan: OP atenolol, amlodipine, torsemide on hold during hospital At d/c, resume atenolol but hold amlodipine, torsemide -continue liberalized diet at d/c > no low sodium, no low K Admission and Anticipated Discharge Date Admission Date: June 20, 2021 Subjective no interval events; getting midline and for d/c home today; no sob; no orthostatic sx w/ ambulation; no abd pain; BM are formed; PD exchanges went OK overnight Review of Systems Review of Systems: All systems reviewed & are unremarkable except as noted in Subjective Physical Exam Constitutional: well developed, well nourished, + morbidly obese and cooperative; no acute distress Eyes: EOM intact bilaterally ENMT: Ears: no external ear abnormality Nose: no external nose abnormality Mouth: + dry oral mucous membranes Neck: no nuchal rigidity Respiratory: normal respiratory effort Auscultation: + diminished lung sounds Cardiovascular: Rate/Rhythm: regular rate and regular rhythm Extremities: + edema (3+ BLE) Gastrointestinal (Abdomen): Inspection/Auscultation: normal bowel sounds and + abdominal edema Percussion/Palpation: abdomen soft; abdomen nontender Musculoskeletal: Extremities: + abnormal strength Skin: no rashes, warm and dry Neurologic: mobley, fluent speech, no tremor Psychiatric: Orientation: oriented x 3 Genitourinary: alegre w/ ample urine Results & Data ([facility]) Vital Signs (Past 12 Hours) Vital Signs Temp Pulse Pulse Resp BP Pulse Ox 06/25/21 11:19 36.9 C 98 H 17 122/65 99 06/25/21 07:38 37.2 C 105 H 19 117/64 98 06/25/21 06:20 88 06/25/21 03:47 36.9 C 84 22 126/65 98 Laboratory Results 06/25/21 03:34 06/25/21 03:34 Diagnostic Findings CXR > clear
[2021-06-25] MEDS ORDERED: MAGNESIUM SULFATE / D5W 1 GM/100 ML BAG IV STA (13:38)
[2021-06-25] MEDS ORDERED: MAGNESIUM OXIDE 400 MG TAB PO ONE (13:50)
== END 2021-06-25 17:10 | disposition home health service (06) | DRG 371 ==
LOC: EDSEX → ED 09:34 → SUATTDRO 12:13 → 2E 12:13
DX: N18.6 End stage renal disease; E87.6 Hypokalemia; E86.0 Dehydration; Z99.2 Dependence on renal dialysis; I12.0 Hypertensive chronic kidney disease with stage 5 chronic kidney disease or end stage renal disease; E21.3 Hyperparathyroidism, unspecified; Z83.3 Family history of diabetes mellitus; E87.2 Acidosis; A02.0 Salmonella enteritis; M10.9 Gout, unspecified; R19.5 Other fecal abnormalities; R78.81 Bacteremia; I95.1 Orthostatic hypotension